=== PATIENT | female | born 1985 | race Caucasian/White ===

== ENCOUNTER 2016-06-26 09:47 | Emergency (ER) | payer SELFPAY ==
[~2016-06-26] VITALS: Ht 165.1 cm; Wt 83.9 kg
[2016-06-26 10:09] VITALS: BP 124/87
--- NOTE | 2016-06-26 10:15 | NUR ---
Patient ambulated to bed 4. RN evaluating patient at bedside.
--- NOTE | 2016-06-26 10:16 | NUR ---
31 YO FEMALE BIB SELF FOR LEFT EAR PAIN. PT DENIES N/V/D; SKIN IS PINK/WARM/DRY; AAOX4 WITH EVEN AND STEADY GAIT; LUNGS CLEAR BL; HR EVEN AND REGULAR; PT DENIES ANY FEVER, CP, SOB, OR COUGH AT THIS TIME; PATIENT STATES PAIN OF 10/10 AT THIS TIME; VSS; PATIENT POSITIONED FOR COMFORT; HOB ELEVATED; BEDRAILS UP X2; BED DOWN. ER MD MADE AWARE OF PT STATUS.
--- NOTE | 2016-06-26 12:13 | NUR ---
Patient appears to be resting comfortably in bed. Respirations even and unlabored. WILL CONTINUE TO MONITOR
--- NOTE | 2016-06-26 12:13 | NUR ---
DR ACOSTA EVALUATING PT AT BEDSIDE
[2016-06-26 12:25] VITALS: BP 111/73
--- NOTE | 2016-06-26 12:25 | NUR ---
Patient discharged with v/s stable. Written and verbal after care instructions given and explained. Patient alert, oriented and verbalized understanding of instructions. Ambulatory with steady gait. All questions addressed prior to discharge. ID band removed. Patient advised to follow up with PMD. Rx of TYLENOL & AMOXICILLIN given. Patient educated on indication of medication including possible reaction and side effects. Opportunity to ask questions provided and answered.
== END 2016-06-26 12:25 | disposition home or self-care (01) ==
LOC: MED 09:47
DX: H60.92 Unspecified otitis externa, left ear (principal); R03.0 Elevated blood-pressure reading, without diagnosis of hypertension